=== PATIENT | female | born 1960 | race Hispanic/Latino ===

== ENCOUNTER 2020-01-01 06:38 | Day surgery (SDC) | payer SELFPAY ==
[~2020-01-01 06:38] MED LIST: ATENOLOL25 MG PO; LISINOPRIL20 MG PO; LORATADINE10 M1 PO
[2020-01-01 10:09] VITALS: BP 127/58
== END 2020-01-01 09:50 | disposition home or self-care (01) | DRG 393 ==
LOC: ENDO 06:38 → ORM 07:45 → ENDO 08:00
PROVIDERS: ATTEND Surgery
PROC: 0DBL8ZX Excision of Transverse Colon, Via Natural or Artificial Opening Endoscopic, Diagnostic (ICD-10-PCS; principal; 2020-01-01)
DX: D12.3 Benign neoplasm of transverse colon (principal); K57.31 Diverticulosis of large intestine without perforation or abscess with bleeding; I10 Essential (primary) hypertension; Z11.59 Encounter for screening for other viral diseases

== ENCOUNTER 2021-12-03 21:20 | Emergency (ER) | payer OTHER ==
[~2021-12-03] VITALS: Ht 157.5 cm; Wt 87.0 kg
[2021-12-03] MEDS ORDERED: CORTISPORIN OTI10 M2 AD (22:08)
[2021-12-03 23:26] VITALS: BP 139/58
== END 2021-12-03 23:26 | disposition home or self-care (01) ==
LOC: ED 21:20
DX: H61.21 Impacted cerumen, right ear (principal); H60.91 Unspecified otitis externa, right ear; I10 Essential (primary) hypertension

== ENCOUNTER 2024-10-02 08:35 | Emergency (ER) | payer MEDICARE, MEDICAID ==
[2024-10-02] VITALS (10 sets, daily range): BP systolic 141–182; BP diastolic 60–76
[~2024-10-02] VITALS: Ht 157.5 cm; Wt 97.0 kg
[~2024-10-02 08:35] MED LIST changes: +CORTISPORIN OTI10 M2 AD
[2024-10-02] MEDS ORDERED: ALBUTEROL SULFATE 2.5 MG VIAL NEB ONE (10:15)
[2024-10-02] MEDS ORDERED: predniSONE 20 MG/TAB PO ONE (10:15)
[2024-10-02] MEDS ORDERED: IPRATROPIUM-Albuterol 0.5MG-2.5MG/3 ML NEB ONE (10:15)
[2024-10-02] MEDS ORDERED: CHERATUSSIN PO (10:21)
[2024-10-02] MEDS ORDERED: DOXYCYC MONO100 M3 PO (10:21)
[2024-10-02] MEDS ORDERED: PREDNISONE50 MG PO (10:21)
[2024-10-02] MEDS ORDERED: IPRATROPIU0.5 MG/3 M IN (10:21)
[2024-10-02 11:14] LABS: ALBUMIN 4.1 g/dL (3.2-5.0); ALKALINE PHOSPHATASE 80 u/l (38-126); ANION GAP 10 (6-22 (CALC)); BILIRUBIN, TOTAL 0.8 mg/dL (0.02-1.3); BUN 10 mg/dL (8-23); BUN/CREATININE RATIO 15 (12-20 (CALC)); CARBON DIOXIDE 28 mmol/l (22-30); CHLORIDE 107 mmol/l (95-108); CREATININE 0.6 mg/dL (0.5-1.0); ESTIMATED GFR 99 ML/MIN (>=90 (CALC)); POTASSIUM 3.9 mmol/l (3.5-5.1); SGOT/AST 23 u/l (9-36); SODIUM 141 mmol/l (137-146); TOTAL PROTEIN 7.8 g/dL (6.3-8.2)
[2024-10-02 11:15] LABS: BASO% 0.1 % (0-3); EOS% 1.4 % (0-8); HEMATOCRIT 40.4 % (37.0-47.0); HEMOGLOBIN 12.6 g/dl (12.0-16.0); IMMATURE GRANULOCYTES 0.1 % (0.0-5.0); LYMPH% 34.7 % (15-41); MEAN CELL VOLUME 91.8 fL CALC (80.0-100.0); MEAN CORPUSCULAR HGB 28.6 pG CALC (26.0-32.0); MEAN CORPUSCULAR HGB CONC 31.2 g/dL CAL (32.0-36.0); NEUT# 5.39 thou/uL (2.00-7.15); NEUT% 57.7 % (42-76); RED BLOOD COUNT 4.4 mill/uL (4.20-5.60); RED CELL DISTRI WIDTH 12.1 % (11.5-15.5)
== END 2024-10-02 11:51 | disposition home or self-care (01) ==
LOC: ED 08:35 → ED-I 11:29 → ED 11:51
PROVIDERS: Family Medicine
DX: J06.9 Acute upper respiratory infection, unspecified (principal); I10 Essential (primary) hypertension; Z20.822 Contact with and (suspected) exposure to COVID-19